=== PATIENT | male | born 1945 | race Caucasian/White ===

== ENCOUNTER 2017-08-20 15:55 | Outpatient (RCR) | payer MEDICARE ==
[2016-09-01 10:14] VITALS: BMI 29.0
[2017-05-08 13:32] VITALS: BP 127/81
[~2017-08-20 15:55] MED LIST: ALLO100T70 PO; AMOX-559 PO; ASPI-1471 PO; ASPI-715 PO; ATOR20TA22 PO; ATR80PT PO; CHOL100039 PO; CHOL10005 PO; CHOL200021 PO; CYCL10TA29 PO; HYDR12.561 PO; KET10 PO; LOR5/325 PO; LOR75 PO; LOSA100T67 PO; NAP500 PO; OLME40TA17 PO; OMEG-96 PO; OXYC-865 PO; PRAV40TA78 PO; SOT80 PO; SOTA120T25 PO
[2017-08-20 16:22] LABS: PLATELET COUNT, AUTOMATED 167 K/uL (150-450)
== END 2017-08-21 14:45 | disposition home or self-care (01) ==
LOC: SPU 15:55
PROVIDERS: ATTEND Internal Medicine Hematology
DX: C18.2 Malignant neoplasm of ascending colon (principal); I10 Essential (primary) hypertension; D72.829 Elevated white blood cell count, unspecified; I48.91 Unspecified atrial fibrillation; E78.5 Hyperlipidemia, unspecified; Z12.5 Encounter for screening for malignant neoplasm of prostate
CPT/HCPCS: 36415; 82378; 85025; G0103; 82040; 82247; 82310; 82374; 82435; 82565; 82947; 84075; 84132; 84153; 84155; 84295; 84450; 84460; 84520

== ENCOUNTER 2017-08-26 15:55 | Outpatient (RCR) | payer MEDICARE ==
[2016-09-01 10:14] VITALS: BMI 29.0
[2017-08-27] MEDS ORDERED: MULT1CAP59 PO (09:02)
== END 2017-11-11 09:38 | disposition home or self-care (01) ==
LOC: RAON 15:55
PROVIDERS: ATTEND Radiology Radiation Oncology
DX: R97.21 Rising PSA following treatment for malignant neoplasm of prostate (principal); Z85.46 Personal history of malignant neoplasm of prostate; I48.91 Unspecified atrial fibrillation; E78.00 Pure hypercholesterolemia, unspecified; I10 Essential (primary) hypertension; Z79.899 Other long term (current) drug therapy
CPT/HCPCS: 99212

== ENCOUNTER 2017-09-18 13:51 | Outpatient (RCR) | payer MEDICARE ==
[2016-09-01 10:14] VITALS: Wt 85.2 kg
[~2017-09-18 13:51] MED LIST changes: +MULT1CAP59 PO
[2017-09-18 14:05] VITALS: BP 127/81
--- NOTE | 2017-09-19 16:39 | ONCOLOGY FOLLOW UP NOTE ---
EVENT DATE: September 18, 2017 DIAGNOSES 1. 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 2. History of prostate cancer. CHIEF COMPLAINT The patient is here today for followup of his colon cancer. ONCOLOGY HISTORY The patient is a 70-year-old male, presentation of abdominal pain with positive fecal occult blood. Diagnostic evaluation EGD came back normal and colonoscopy done on 01/24/14 showed right colon mass and biopsy of that mass came back positive for invasive poorly differentiated colonic adenocarcinoma. Colon biopsy at 15 cm showed tubular adenoma. PROCEDURE Right hemicolectomy done on 01/25/14. Pathology came back positive for poorly differentiated invasive colonic adenocarcinoma. The mass was penetrating through the serosa (pT3a), 16 lymph nodes were negative for metastasis. Margins were negative. Oncotype DX testing did reveal the recurrence score result of 19 with risk of recurrence at 15% and that risk will drop to 8% by 5- FU leucovorin chemotherapy and to 6% by FOLFOX chemotherapy. STAGE Stage II (pT3a, pN0, M0). HISTORY OF PRESENT ILLNESS Patient is here today for follow up of his colon cancer. He is doing fine currently except for some cough with occasional phlegm, but other than that he is really doing very well. His bowel movements are regular. Denies any diarrhea, constipation or bleeding per rectum. PAST MEDICAL HISTORY Significant for hypertension, hypercholesterolemia, atrial fibrillation. PAST SURGICAL HISTORY 1. Right hemicolectomy done on January 25, 2014. 2. Hernia repair. 3. Prostate biopsy done on March 26, 2016. 4. Hernia repair surgery in 2017. 5. Laparoscopic cholecystectomy in 2017. FAMILY HISTORY Paternal cousin had lymphoma in the 50's and he at 55. SOCIAL HISTORY Patient is single. He has 2 sons and 1 daughter. 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 He had about 4 drinks per week. He quit tobacco 5 years ago. Prior to that he smoked about 1 pack a day for 40 years. He also chewed tobacco twice per week. No abuse of illicit drugs. CURRENT MEDICATIONS 1. Losartan. 2. Lipitor. ALLERGIES No known drug allergies. REVIEW OF SYSTEMS CONSTITUTIONAL: No appetite or weight change. No fever, chills or sweating. No recent infection. HEENT: Ears: No tinnitus or hearing problem. Nose: No nasal discharge or epistaxis. Throat: No sore throat or mouth ulcers. Eyes: No diplopia or visual changes. RESPIRATORY: The patient has cough with occasional phlegm. CARDIOVASCULAR: No chest pain, orthopnea, or paroxysmal nocturnal dyspnea (PND) . No edema. No palpitations. GASTROINTESTINAL: He has occasional abdominal pain. GENITOURINARY: No hematuria or dysuria. MUSCULOSKELETAL: He has occasional muscle aches with exercise. NEUROLOGICAL: No tingling or numbness in the hands or feet. No headaches or convulsions. HEMATOLOGIC/LYMPHATIC: No bleeding or easy bruising. No weakness or fatigue. No enlarged lymph nodes. SKIN: No skin rash or lumps. PSYCHIATRIC: No anxiety or depression. PHYSICAL EXAMINATION GENERAL: Looks stable. Well-developed, well-nourished, and in no acute distress. VITAL SIGNS: Blood pressure 127/81, pulse 63 per minute, respirations 16 per minute, temperature 97.1, pulse ox 91% on room air. HEENT: Head: Atraumatic. No sinus tenderness to palpation. Eyes: No icterus or conjunctivitis. Mouth and Throat: No oral thrush or mucositis. NECK: Supple. No cervical or supraclavicular lymphadenopathy. LUNGS: Clear to auscultation and percussion bilaterally. HEART: Regular rate and rhythm. No gallops, murmurs, clicks or rubs. ABDOMEN: Scar of recent surgery is noted and healed well. EXTREMITIES: No cyanosis, clubbing or edema. LYMPHATICS: No peripheral lymphadenopathy. NEUROLOGICAL: Conscious, alert and oriented times three. No focal motor or sensory deficits. PSYCHIATRIC: Mood and affect appear normal. SKIN: No skin rash, bruise or purpuric eruption. DIAGNOSTIC DATA CBC showed white count 6.4, hemoglobin 16.9, hematocrit 48.6, platelets 167, 000. Chem panel totally normal except carbon dioxide 19. AST 54 and ALT 88. CEA 0.9. ASSESSMENT 1. Stage II (pT3 pN0 cM0) ascending colon cancer status post right hemicolectomy January 25, 2014 for a tumor invading through the serosa; 16 lymph nodes were negative for metastasis. Patient had a recurrence score by Oncotype DX testing of 19 and his chance of recurrence was about 15%. Patient did not receive any adjuvant chemotherapy after his surgery. His current CEA is 0.9, which is stable and normal. Patient is doing very well currently. I am planning to see him again in four months with CBC, Chem panel and CEA. Next December patient will complete four years since his diagnosis. 2. History of prostate cancer status post biopsy March 22, 2016 for high PSA around 6, and prostate cancer was also found in one core from the right lateral base, which was positive for prostate adenocarcinoma, Maynard score 3+3=6, occupying 10% of the total biopsy core. Patient is followed by Dr. Hood and Dr. Neely for that. PLAN 1. Continue followup. 2. Patient to return in four months with CBC, chem panel and CEA. 3. Patient to contact us for any new concerns or complaints. ALLISON
== END 2017-09-26 11:46 | disposition home or self-care (01) ==
LOC: ONC 13:51
PROVIDERS: ATTEND Internal Medicine Hematology
DX: C18.2 Malignant neoplasm of ascending colon (principal); I10 Essential (primary) hypertension; D72.829 Elevated white blood cell count, unspecified; I48.91 Unspecified atrial fibrillation; E78.5 Hyperlipidemia, unspecified; Z85.038 Personal history of other malignant neoplasm of large intestine
CPT/HCPCS: 99212

== ENCOUNTER → 2017-10-14 | Outpatient (REF) | payer MEDICARE ==
[2016-09-01 10:14] VITALS: BMI 29.0
== END ==
LOC: ZZSENDIN 12:00
PROVIDERS: ATTEND Urology
DX: C61 Malignant neoplasm of prostate (principal)
CPT/HCPCS: 88305; 88344

== ENCOUNTER 2017-11-25 12:51 | Outpatient (RCR) | payer MEDICARE ==
[2016-09-01 10:14] VITALS: BMI 29.0
--- NOTE | 2017-11-25 15:42 | Oncology Progress Note ---
History of Present Illness Evaluation Evaluation Date: Nov 25, 2017 Evaluation Time: 13:45 Primary Care Provider Primary Care Provider: Natasha Castillo FNP Accompanied by Accompanied by: Self Last seen by Dr.: Dr. Hood today 11/24/17 Chief Complaint Chief Complaint: Follow up for Active Surveillance for stage II colon cancer. Oncology History Oncology History: PSA values 10/14/15 5.9 10/08/16 3.60 11/17/17 8.54 S/p biopsy. Right hemicolectomy done on 01/25/14. Pathology came back positive for poorly differentiated invasive colonic adenocarcinoma. The mass was penetrating through the serosa (pT3a), 16 lymph nodes were negative for metastasis. Margins were negative. Oncotype DX testing did reveal the recurrence score result of 19 with risk of recurrence at 15% and that risk will drop to 8% by 5-FU leucovorin chemotherapy and to 6% by FOLFOX chemotherapy. Treatment Treatment: Colectomy to colon cancer then developing incisional hernia which was repaired on January 31, 2015 with an 11 cm 14 cm piece of mesh HPI HPI: Mr. 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 and History of prostate cancer. Patient is seen with Dr. Hood today for his active surveillance. after variable PSA labs values. S/p biopsy . PSA on 11/17/17 is 8.54. patient is here by himself. patient reports being in his usual state of health, denies any bowel, bladder pattern changes. Denies recent fevers, chills, nigh sweats, sore throat or recent hospitalizations.He reports being very active working on his property yard. He is hemodinamically stable. Diagnostic Studies Miscellaneous/Other: PAST MEDICAL HISTORY Significant for hypertension, hypercholesterolemia, atrial fibrillation. PAST SURGICAL HISTORY 1. Right hemicolectomy done on January 25, 2014. 2. Hernia repair. 3. Prostate biopsy done on March 26, 2016. 4. Hernia repair surgery in 2016. 5. Laparoscopic cholecystectomy in 2017. PMH Patient History: FH: stroke MOTHER Social/Occupational History Social History: Social History This is a 72 Yr old White male, he is S Single and has [] Children Hx Smoking: Yes (QUIT 9 YRS AGO - SMOKED 1PPD X 40 YRS ) Smoking Status: Former Smoker Allergies & Medications Allergies: Coded Allergies: No Known Drug Allergies (Unverified , 05/01/17) Home Meds Reported Medications Multivitamin (MULTIVITAMINS) 1 Each Capsule, 1 EACH PO DAILY, CAPSULE 08/27/17 Atorvastatin (LIPITOR) 80 Mg Tab, 40 MG PO QDAY, TAB 05/01/17 Cholecalciferol (Vitamin D3) (Vitamin D3) 10,000 Unit Tablet, 5000 PO DAILY 09/01/16 Sotalol Hcl (SOTALOL) 80 Mg Tab, 40 MG PO BID, TAB 08/07/16 Aspirin (ASPIR 81) 81 Mg Tablet.dr, 81 MG PO QDAY, TAB HOLD WHILE TAKING TORADOL 05/23/16 [place]-3 Fatty Acids/Fish Oil (OMEGA 3 1,000 MG SOFTGEL) 1 Each Capsule, 1 EACH PO QDAY, CAPSULE 10/14/14 Losartan Potassium (LOSARTAN POTASSIUM) 100 Mg Tablet, 100 MG PO QDAY 01/17/14 Review of Systems Constitution: Denies Appetite/Weight Change, Denies Fever/Chills/Sweating, Denies Recent Infection, Denies Other HEENT: No EARS: Tinnitus, No NOSE: Nasal Discharge, No THROAT: Sore Throat, No EYES: Dipolpia, No EARS: Hearing Problems, No NOSE: Epistaxis, No THROAT: Mouth Ulcers, No EYES: Vision Change, No OTHER Respiratory: No Cough, No Expectoration, No Hemoptysis, No Shortness of Breath , No OTHER Cardiovascular: No Chest Pain, No Orthopnea, No Edema, No Palpitations, No OTHER Gastrointestinal: No Nausea, No Vomitting, No Diarrehea, No Constipation, No Heart Burn, No Swallowing Difficulties, Abdominal Pain, No Other Gentiourinary: No Hematuria, No Dysuria, No Nocturia, No Other Musculoskeletal: No Muscle Pain, Joint Pain, No Bone Pain, No Other Hematological: No Bleeding, No Weakness, No Enlarged Lyph Nodes, No Bruising, No Fatigue, No Other Skin: No Skin Rash, No Lumps, No Erythema, No Dry Skin, No Moist Skin, No Other Psychiatric: No Anxiety, No Depression, No Other Vital Signs Vital Signs STABLE. Temperature: Pulse: BP Systolic: BP Diastolic: Respiratory Rate: O2 SAT: O2 Delivery: Height (feet) Height (inches) Weight lb: 194 Weight oz: 3.0 Weight Kg (Sarmad): Pain: Physical Exam General: Looks Stable HEENT: HEAD:Atraumatic Neck: Supple Lungs: Clear to Auscultation Heart: Regular Rate and Rhythm Abdomen: Soft and Nontender (VENTRAL HERNIA SCAR), No Hepatosplenomegaly, No Masses, No Other Extremities: No Cyanosis, No Clubbing, No Edema, No Other Lymphatics: No Peripheral Lymphadenopathy, No Other Psychiatric: Mood appears normal, Affect appears normal Skin: No Skin Rashes, No Bruising, No Purpura, No Moist Desquamation, No Dry Desquamation, No Errythema, No Mild Errythema, No Moderate Errythema, No Severe Errythema, No Induration, No Other Breast: No No Masses, No No Nipple Discharge, No No Skin Changes, No Other Assessment and Plan Assessment and Plan: ASSESSMENT Mr. 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 and History of prostate cancer. Patient is seen with Dr. Hood today for his active surveillance for Stage II (pT3 pN0 cM0) ascending DIAGNOSTIC DATA CBC,CMP within normal limits. CEA 0.9 on 08/20/2017 PSA on 11/17/17 is 8.54 1. Stage II (pT3 pN0 cM0) ascending colon cancer, status post right hemicolectomy, January 25, 2014, for a tumor invading through the serosa. Sixteen lymph nodes were negative for metastasis. The patient has a recurrence score by Oncotype DX testing of 19 and his chance of recurrence was only 15%. The patient did not receive any adjuvant chemotherapy after his surgery. His current CEA is stable and normal at 0.9 2. History of prostate cancer, status post prostate biopsy March 26, 2016 for high PSA around 6 and prostate cancer was only present in one core from the right lateral base, which was positive for prostate adenocarcinoma, Ashwini score 3+3=6, occupying only 10% of the total biopsy. 3. Variable PSA lab test trending up. Patient was instructed by Dr. Landon on 07/2017 to f/u with Dr. Neely. Which Patient recently saw Dr. Neely, with an Upcoming f/u apppitnment on 03/03/2018. - Patient agrees with Dr. Hood treatment plan and receptive to initiate treatment shall PSA levels contnue to rise. PSA values 10/14/15 5.9 10/08/16 3.60 11/17/17 8.54 S/p biopsy. CHRONIC Hypertension, Hypercholesterolemia, Atrial fibrillation: Controlled on Medications PLAN 1. Continue Active surveillance. And F/u with DEJA Estrada, Dr. Neely. 2. PSA labs q3 months, here at [facility] one-to two weeks prior to f/u with Urology. 3. Next PSA to be scheduled for 01/2018. Per Dr. Neely recomendations 4. F/u apppoitnment on 03/03/[address] Neely 5. Patient to return for follow up in 4 months with CBC, CMP and CEA. 6. Patient to contact us for any new concern or complaints TIME SPENT: 25 minutes > 20 minutes includes but not limited to discussion, counselling and co-ordination~ of care. Discussion with other health care providers, record review, review of lab work, diagnostic tests. Plan discussed extensively with patient. All the questions answered today. Thank you for the opportunity to be involved in the care of Billing Level: Return visit 4 CC Copies to: LINA ADAME MD; REESE NEELY MD; NATASHA CASTILLO; FRANK HOOD MD [facility], ONC Nov 25, 2017 15:32
== END 2017-11-26 09:48 | disposition home or self-care (01) ==
LOC: RAON 12:51
PROVIDERS: ATTEND Radiology Radiation Oncology
DX: C61 Malignant neoplasm of prostate (principal); Z85.038 Personal history of other malignant neoplasm of large intestine
CPT/HCPCS: 36415; 84153; G0463; 99212

== ENCOUNTER 2018-01-22 13:57 | Outpatient (RCR) | payer MEDICARE ==
[2016-09-01 10:14] VITALS: Wt 84.6 kg
[2018-01-15 14:20] LABS: PLATELET COUNT, AUTOMATED 183 K/uL (150-450)
[~2018-01-22 13:57] MED LIST changes: -LOSA100T67 PO; +LOSA100T69 PO
[2018-01-22 14:05] VITALS: BP 104/75
--- NOTE | 2018-01-22 18:58 | ONCOLOGY FOLLOW UP NOTE ---
EVENT DATE: January 22, 2018 DIAGNOSES 1. Stage II ([id number]) ascending colon cancer. 2. History of prostate cancer. CHIEF COMPLAINT The patient is here today for followup of his colon cancer. ONCOLOGY HISTORY The patient is a 72-year-old male, presentation of abdominal pain with positive fecal occult blood. Diagnostic evaluation EGD came back normal, and colonoscopy done on January 24, 2014, showed right colon mass. Biopsy of that mass came back positive for invasive, poorly differentiated colonic adenocarcinoma. Colon biopsy at 15 cm showed tubular adenoma. PROCEDURE Right hemicolectomy done on January 25, 2014. Pathology came back positive for poorly differentiated, invasive colonic adenocarcinoma. The mass was penetrating through the serosa (pT3a), and 16 lymph nodes were negative for metastasis. Margins were negative. Oncotype DX testing did reveal the recurrence score result of 19 with risk of recurrence at 15%, and that risk will drop to 8% by 5-FU and leucovorin chemotherapy and to 6% by FOLFOX chemotherapy. STAGE Stage II ([id number]). HISTORY OF PRESENT ILLNESS Patient is here today for followup of his colon cancer. He is doing fine currently. He is having some cough with expectoration sometime. He has also some pain in his knees, but other than that, he is really doing very well. His bowel movements are regular. PAST MEDICAL HISTORY 1. Hypertension. 2. Hypercholesterolemia. 3. Atrial fibrillation. PAST SURGICAL HISTORY 1. Right hemicolectomy done on January 25, 2014. 2. Hernia repair. 3. Prostate biopsy done on March 26, 2016. 4. Hernia repair surgery in 2017. 5. Laparoscopic cholecystectomy in 2017. FAMILY HISTORY Paternal cousin had lymphoma in the 50s, and he at 55. SOCIAL HISTORY Patient is single. He has two sons and one daughter. 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 He has about four drinks per week. He quit tobacco five years ago. Prior to that, he smoked about one pack a day for 40 years. He also chewed tobacco twice per week. No abuse of illicit drugs. CURRENT MEDICATIONS 1. Losartan. 2. Lipitor. ALLERGIES No known drug allergies. REVIEW OF SYSTEMS CONSTITUTIONAL: No appetite or weight change. No fever, chills, or sweating. No recent infection. HEENT: Ears: No tinnitus or hearing problem. Nose: No nasal discharge or epistaxis. Throat: No sore throat or mouth ulcers. Eyes: No diplopia or visual changes. RESPIRATORY: The patient has cough with expectoration. CARDIOVASCULAR: No chest pain, orthopnea, or paroxysmal nocturnal dyspnea (PND). No edema. No palpitations. GASTROINTESTINAL: He has occasional abdominal pain. GENITOURINARY: No hematuria or dysuria. MUSCULOSKELETAL: He has pain in the knees. NEUROLOGICAL: No tingling or numbness in the hands or feet. No headaches or convulsions. HEMATOLOGIC/LYMPHATIC: No bleeding or easy bruising. No weakness or fatigue. No enlarged lymph nodes. SKIN: No skin rash or lumps. PSYCHIATRIC: No anxiety or depression. PHYSICAL EXAMINATION GENERAL: Looks stable. Well developed, well nourished, and in no acute distress. VITAL SIGNS: Blood pressure 104/75, pulse 66 per minute, respirations 16 per minute, temperature 97.2, pulse ox 90% on room air. HEENT: Head: Atraumatic. No sinus tenderness to palpation. Eyes: No icterus or conjunctivitis. Mouth and Throat: No oral thrush or mucositis. NECK: Supple. No cervical or supraclavicular lymphadenopathy. LUNGS: Clear to auscultation and percussion bilaterally. HEART: Regular rate and rhythm. No gallops, murmurs, clicks, or rubs. ABDOMEN: Scar of recent surgery is noted and healed well. EXTREMITIES: No cyanosis, clubbing, or edema. LYMPHATICS: No peripheral lymphadenopathy. NEUROLOGICAL: Conscious, alert, and oriented times three. No focal motor or sensory deficits. PSYCHIATRIC: Mood and affect appear normal. SKIN: No skin rash, bruise, or purpuric eruption. DIAGNOSTIC DATA CBC showed white count 6000, hemoglobin 16.2, hematocrit 46.6, platelets 183,000. Chem panel totally normal except AST is 74 and ALT 92. CEA is 1. ASSESSMENT 1. Stage II ([id number]) ascending colon cancer, status post right hemicolectomy January 25, 2014, for a tumor invading through the serosa; 16 lymph nodes were negative for metastasis. Patient had a recurrence score by Oncotype DX testing of 19, and his chance of recurrence was about 15%. Patient did not receive any adjuvant chemotherapy after his surgery. His current CEA is only 1, which is stable and normal. I am planning to continue followup. As the patient is four years since his diagnosis, I am planning to see him now every six months with CBC, chemistry panel, and CEA. 2. History of prostate cancer, status post biopsy March 22, 2016, for high PSA around 6, and prostate cancer was found in one core from the right lateral base which was positive for prostate adenocarcinoma, [place] score 3 + 3 = 6, occupying 10% of the total biopsy core. Patient is followed by his urologist and radiation oncologist. PLAN 1. Continue followup. 2. Patient to return in six months with CBC, chem panel, and CEA. 3. Patient to contact us for any new concerns or complaints. ALLISON
== END 2018-04-01 10:00 | disposition home or self-care (01) ==
LOC: ONC 13:57
PROVIDERS: ATTEND Internal Medicine Hematology
DX: C18.2 Malignant neoplasm of ascending colon (principal); I10 Essential (primary) hypertension; D72.829 Elevated white blood cell count, unspecified; I48.91 Unspecified atrial fibrillation; E78.5 Hyperlipidemia, unspecified; Z85.46 Personal history of malignant neoplasm of prostate; R05 Cough; Z87.891 Personal history of nicotine dependence
CPT/HCPCS: 36415; 82378; 85025; G0463; 82040; 82247; 82310; 82374; 82435; 82565; 82947; 84075; 84132; 84155; 84295; 84450; 84460; 84520; 99212

== ENCOUNTER 2018-02-24 13:00 | Outpatient (RCR) | payer MEDICARE ==
[2016-09-01 10:14] VITALS: BMI 29.0
[2018-02-24 13:02] VITALS: BP 127/81
== END 2018-04-01 09:31 | disposition home or self-care (01) ==
LOC: SPU 13:00
PROVIDERS: ATTEND Urology
DX: C61 Malignant neoplasm of prostate (principal)
CPT/HCPCS: 36415; 84153

== ENCOUNTER → 2018-11-12 | Outpatient (CLI) | payer MEDICARE ==
[2016-09-01 10:14] VITALS: BMI 29.0
[~2018-11-12] MED LIST changes: -LOSA100T69 PO; +LOSA100T75 PO
== END ==
LOC: SPU 08:51
PROVIDERS: ATTEND Urology
DX: C61 Malignant neoplasm of prostate (principal)
CPT/HCPCS: 84153

== ENCOUNTER 2018-11-19 15:51 | Outpatient (RCR) | payer MEDICARE ==
[2016-09-01 10:14] VITALS: Wt 85.7 kg
[2018-11-12 15:43] VITALS: BP 122/84
[2018-11-12 16:27] LABS: PLATELET COUNT, AUTOMATED 160 K/uL (150-450)
[2018-11-19 15:59] VITALS: BP 124/81
[2018-11-19] MEDS ORDERED: CYAN25004 PO (16:02)
--- NOTE | 2018-11-19 22:14 | ONCOLOGY FOLLOW UP NOTE ---
EVENT DATE: November 19, 2018 DIAGNOSES 1. Stage II (pT3a pN0 M0) ascending colon cancer. 2. History of prostate cancer. CHIEF COMPLAINT Patient is here today for followup of his colon cancer. ONCOLOGY HISTORY Patient is a 73-year-old male with presentation of abdominal pain with positive fecal occult blood. Diagnostic evaluation EGD came back normal, and colonoscopy done on January 24, 2014, showed right colon mass. Biopsy of that mass came back positive for invasive, poorly differentiated colonic adenocarcinoma. Colon biopsy at 15 cm showed tubular adenoma. PROCEDURE Right hemicolectomy done on January 25, 2014. Pathology came back positive for poorly differentiated, invasive colonic adenocarcinoma. The mass was penetrating through the serosa (pT3a), and 16 lymph nodes were negative for metastasis. Margins were negative. Oncotype DX testing did reveal the recurrence score result of 19 with risk of recurrence at 15%, and that risk will drop to 8% by 5-FU and leucovorin chemotherapy and to 6% by FOLFOX chemotherapy. STAGE Stage II (pT3a pN0 M0). HISTORY OF PRESENT ILLNESS Patient is here today for followup of his colon cancer. He is complaining of some pain in his knees from old age, but other than that, he is doing really very well. PAST MEDICAL HISTORY 1. Hypertension. 2. Hypercholesterolemia. 3. Atrial fibrillation. PAST SURGICAL HISTORY 1. Right hemicolectomy done on January 25, 2014. 2. Hernia repair. 3. Prostate biopsy done on March 26, 2016. 4. Hernia repair surgery in 2017. 5. Laparoscopic cholecystectomy in 2017. FAMILY HISTORY Paternal cousin had lymphoma in the 50s, and he at 55. SOCIAL HISTORY Patient is single. He has two sons and one daughter. 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 He has about four drinks per week. He quit tobacco five years ago. Prior to that, he smoked about one pack a day for 40 years. He also chewed tobacco twice per week. No abuse of illicit drugs. CURRENT MEDICATIONS 1. Losartan. 2. Lipitor. ALLERGIES No known drug allergies. REVIEW OF SYSTEMS CONSTITUTIONAL: No appetite or weight change. No fever, chills, or sweating. No recent infection. HEENT: Ears: No tinnitus or hearing problem. Nose: No nasal discharge or epistaxis. Throat: No sore throat or mouth ulcers. Eyes: No diplopia or visual changes. RESPIRATORY: No shortness of breath. No cough, expectoration, or hemoptysis. CARDIOVASCULAR: No chest pain, orthopnea, or paroxysmal nocturnal dyspnea (PND). No edema. No palpitations. GASTROINTESTINAL: No nausea or vomiting. No diarrhea or constipation. No change in bowel movements. No heartburn or swallowing difficulties. No abdominal pain. No jaundice. No hematemesis, melena, or rectal bleeding. GENITOURINARY: No hematuria or dysuria. MUSCULOSKELETAL: Patient has pain in his knees from old age. NEUROLOGIC: No tingling or numbness in the hands or feet. No headaches or convulsions. HEMATOLOGIC/LYMPHATIC: No bleeding or easy bruising. No weakness or fatigue. No enlarged lymph nodes. SKIN: No skin rash or lumps. PSYCHIATRIC: No anxiety or depression. PHYSICAL EXAMINATION GENERAL: Looks stable. Well developed, well nourished, and in no acute distress. VITAL SIGNS: Blood pressure 124/81, pulse 71 per minute, respirations 16 per minute, temperature 98.4, pulse ox 90% on room air. HEENT: Head: Atraumatic. No sinus tenderness to palpation. Eyes: No icterus or conjunctivitis. Mouth and Throat: No oral thrush or mucositis. NECK: Supple. No cervical or supraclavicular lymphadenopathy. LUNGS: Clear to auscultation and percussion bilaterally. HEART: Regular rate and rhythm. No gallops, murmurs, clicks, or rubs. ABDOMEN: Soft and lax. No tenderness. No hepatosplenomegaly. No masses. EXTREMITIES: No cyanosis, clubbing, or edema. LYMPHATICS: No peripheral lymphadenopathy. NEUROLOGIC: Conscious, alert, and oriented times three. No focal motor or sensory deficits. PSYCHIATRIC: Mood and affect appear normal. SKIN: No skin rash, bruise, or purpuric eruption. DIAGNOSTIC DATA CBC showed white count 6.5, hemoglobin 16.7, hematocrit 48.4, platelets 160,000. Potassium 3.4, carbon dioxide 21, AST 64, ALT 75. CEA in July 2018 was normal at 0.9. ASSESSMENT 1. Stage II (pT3 pN0 cM0) ascending colon cancer, status post right hemicolectomy January 25, 2014, for a tumor invading through the serosa; 16 lymph nodes were negative for metastasis. Patient had a recurrence score by Oncotype DX testing of 19, and his chance of recurrence was about 15%. Patient did not receive any adjuvant chemotherapy after his surgery. His current CEA is 0.9, which is stable and normal. I am planning to continue followup. I will see him again in six months with CBC, chemistry panel, and CEA. 2. History of prostate cancer, status post biopsy March 22, 2016, for high PSA around 6, and prostate cancer was found in one core of the right lateral base which was positive for prostate adenocarcinoma, Effie score 3 + 3 = 6, occupying 10% of the total biopsy core. Patient is followed by Dr. Hood, radiation oncologist, and his urologist, Dr. Neely, and his PSA lately showed some increase from 6.5 to 7.58. He is going to see them very soon. PLAN 1. Continue followup. 2. Patient to return in six months with CBC, chem panel, and CEA. 3. Patient to contact us for any new concerns or complaints. RENZOD
== END 2018-11-25 15:37 | disposition home or self-care (01) ==
LOC: ONC 15:51
PROVIDERS: ATTEND Internal Medicine Hematology
DX: Z85.038 Personal history of other malignant neoplasm of large intestine (principal); Z85.46 Personal history of malignant neoplasm of prostate; Z87.891 Personal history of nicotine dependence
CPT/HCPCS: 36415; 82378; 84153; 85025; G0463; 82040; 82247; 82310; 82374; 82435; 82565; 82947; 84075; 84132; 84155; 84295; 84450; 84460; 84520; 99212